=== PATIENT | female | born 1985 | race Caucasian/White ===

== ENCOUNTER 2023-04-26 12:02 | Emergency (ER) | payer BC, SELFPAY ==
[2023-04-26 12:04] VITALS: BP 152/101
--- NOTE | 2023-04-26 12:29 | ED.GENMED ---
History of Present Illness
General
Chief Complaint: Chest Pain
Source: patient
Exam Limitations: none
Time Seen by Provider: 04/26/23 12:15
Nursing documentation reviewed up to this point in time: agreed with
Travel History
Have you had any contact with someone who has COVID-19?: No
Do you have any symptoms of coronavirus? Fever > 100 degrees, chills, cough, shortness of breath, sore throat, loss of taste or smell, muscle aches, or headache?: No
History of Present Illness
History of Present Illness:
Patient to ED with complaint of chest pain. Symptoms started 1.5 weeks ago but seemed worse this AM. Describes pain as intermittent. Worse with deep breath. Diagnosed with breast CA in Sec. She is currently receiveing chemo. She has had 8
treatments, 16 to go. Last treatment was . She follows at [facility]. They are aware of her chest pain. Advised to come to ED if her symptoms worsened. She reprots increasing pain this AM. Denies fever/chills. Denies cough. No prior history
of same.
Past History
Past History
ED Past Medical History: Cancer (breast cancer), GERD and Other (Miscarriage)
ED Past Surgical History: Other (port, wisdom teeth)
Social History
Tobacco: Non-smoker
Alcohol: Occasional
Drug: None
Personal:
Living: with family
Review of Systems
Review of Systems
Allergies reviewed?: Yes
All Other Systems: ROS reviewed and negative except as documented in HPI and ROS
Constitutional: Reports no symptoms
EENT: Reports no symptoms
Respiratory: Reports no symptoms
Cardiac: Reports chest pain
ABD/GI: Reports no symptoms
: Reports no symptoms
Musculoskeletal: Reports no symptoms
Skin: Reports no symptoms
Neurological: Reports no symptoms
Psychiatric: Reports no symptoms
Phy Exam
General Physical Exam
General Presentation: well appearing and no apparent distress
General age: appears stated age
General Skin: warm and dry
General Habitus: normal
General Mental: alert
Cardiovascular Exam
Cardiovascular Exam: no edema and tachycardia
Pulmonary Exam
Pulmonary Exam: lungs clear and no respiratory distress
Gastrointestinal Exam
Gastrointestinal Exam: normal bowel sounds and non tender
Musculoskeletal Exam
Musculoskeletal Exam: full ROM and neuro vasc intact
Skin Exam
Skin Exam: normal color, warm/dry and no rash
Psychiatric Exam
Psychiatric Exam: normal mood/affect
Scores
Heart Score for Chest Pain Patients
STEMI patient?: Not applicable
Course
Orders/Labs/Results
Orders:
Orders
04/26/23 12:07
EKG [Electrocardiogram (*1)] Urgent
Reason for Study: Chest Pain
EKG- Treatment ONCE
04/26/23 12:29
Test Result ONCE
04/26/23 12:50
CR Chest - 2 Views Urgent
Comment:
Reason For Exam: chest pain, port Id
04/26/23 12:53
Complete Blood Count/With Diff Urgent
Comprehensive Metabolic Panel Urgent
D-Dimer Urgent
HCG, Serum Qualitative Screen Urgent
Troponin I Urgent
Abnormal Lab Results
04/26/23
12:53
WBC 2.6 L 10^3/uL
(4.8-10.8)
RBC 3.18 L 10^6/uL
(4.20-5.40)
Hgb 9.9 L g/dL
(12.0-16.0)
Hct 27.5 L %
(37.0-47.0)
MCH 31.1 H pg
(27.0-31.0)
RDW 14.7 H %
(11.5-14.5)
Absolute Neuts (auto) 1.2 L 10^3/uL
(1.4-6.5)
Potassium 3.3 L mmol/L
(3.5-5.1)
Creatinine 0.5 L mg/dL
(0.6-1.0)
Glucose 118 H mg/dl
(70-99)
04/26/23 12:53
04/26/23 12:53
Vital Signs
Initial and Last Documented VS:
Initial Vital Signs
Temp Pulse Resp BP Pulse Ox
98.1 F 126 18 152/101 100
04/26/23 12:04 04/26/23 12:04 04/26/23 12:04 04/26/23 12:04 04/26/23 12:04
Last Documented Vital Signs
Temp Pulse Resp BP Pulse Ox
98.1 F 91 15 118/97 100
04/26/23 12:04 04/26/23 13:15 04/26/23 13:15 04/26/23 13:00 04/26/23 13:15
*Radiology
Radiology exam reviewed: preliminary read by ED provider (TARI)
*Pulse Oximetry
Patient hypoxic: no
*EKG
Comparison EKG: no comparison EKG present
Rate: tachycardiac
Rhythm: sinus
*Critical Care Note
Total Time (30-74mins, 75-104mins- exclusive of procedures): Not Applicable
Update Note
Update Note:
Patient to ED for evaluation of chest pain x 1.5 weeks. Currently receiving chemo for breast CA. EKG sinus tachycardia. Tropnin and ddimer neg. Placed on Prevacid 2 days ago to treat suspected GERD. She will continue med as prescribed, follow
up with PCP in AM. Given instructions on s/s to return to ED and she is agreeable to plan.
ED Attending Note
-
Portions of this chart may have been created with voice recognition software.� Occasional wrong word or��sound alike� substitutions may have occurred due to the inherent limitations of voice recognition software.
Discharge Plan
Departure
Patient Disposition: Home (Routine Discharge)
Date of Disposition: 04/26/23
Time of Disposition: 13:50
Patient with high blood pressure during this ER visit?: No
Condition: Good
Covid-19: Not Applicable
Discharge Problem:
Chest pain
Instructions: Chest Pain That Is Not Caused by the Heart (DC), Acid Reflux and GERD in Adults (DC)
Prescriptions:
No Action
prednisone 50 MG tablet
50 mg PO DAILY Qty: 4 0RF
Referrals:
Bella Dawn MD [Family Provider] - Follow up in 2-3 days
Interventions
Interventions:
*Risk Screen - Suicide Last Done: 04/26/23 12:36
*General Assessment Last Done: 04/26/23 12:04
*Neglect/Abuse Screening Last Done: 04/26/23 12:36
ED- Fall Risk Assessment Last Done: 04/26/23 13:29
*ED COVID-19 Vaccine History Last Done: 04/26/23 12:04
*Nursing Disposition Last Done: 04/26/23 14:22
ED- Cardiac Assessment Last Done: 04/26/23 12:36
Discharge Date and Time
Discharge Date/Time: 04/26/23 14:29
[2023-04-26 12:35] VITALS: BMI 19.4
[2023-04-26 12:54] VITALS: BP 125/95
[2023-04-26 13:00] VITALS: BP 118/97
[2023-04-26 13:01] LABS: % Basophils 0.8 % (0-2); % Immature Granulocytes 0.4 % (0-0.5); % Lymphocytes 46.1 % (20.5-51.1); % Neutrophils 45.7 % (42.2-75.2); Absolute Lymphocytes 1.2 10^3/uL (1.2-3.4); Absolute Monocytes 0.2 10^3/uL (0.1-0.6); Absolute Neutrophils 1.2 10^3/uL (1.4-6.5); Hematocrit 27.5 % (37.0-47.0); Hemoglobin 9.9 g/dL (12.0-16.0); Mean Corpuscular Hgb 31.1 pg (27.0-31.0); Mean Corpuscular Volume 86.5 fL (81.0-99.0); Mean Platelet Volume 9.1 fL (7.4-10.4); Nucleated Red Blood Cells % 0 %; Platelet Count 227 10^3/uL (130-400); Red Blood Cell Count 3.18 10^6/uL (4.20-5.40); Red Cell Dist. Width 14.7 % (11.5-14.5); White Blood Cell Count 2.6 10^3/uL (4.8-10.8)
[2023-04-26 13:11] LABS: HCG, Serum Qualitative Screen Negative
[2023-04-26 13:16] LABS: ALT (SGPT) 25 U/L (0-35); AST (SGOT) 24 U/L (14-36); Albumin 4.1 g/dl (3.5-5.0); Alkaline Phosphatase 45 U/L (38-126); Blood Urea Nitrogen 10 mg/dl (7-17); Calcium 9.3 mg/dl (8.4-10.2); Carbon Dioxide 27 mmol/L (22-30); Chloride 103 mmol/L (98-107); D-Dimer 0.39 ug/mlFEU (0.00-0.50); Estimated Creatinine Clearance 97 ml/min; Glucose 118 mg/dl (70-99); Potassium 3.3 mmol/L (3.5-5.1); Sodium 137 mmol/L (135-145); Total Bilirubin 0.3 mg/dl (0.2-1.3); Total Protein 6.6 g/dl (6.3-8.2); eGFR > 60.00
[2023-04-26 13:26] LABS: Troponin I < 0.012 ng/ml
== END 2023-04-26 14:29 | disposition home or self-care (01) ==
LOC: EMR 12:02
PROVIDERS: Nurse Practitioner; EMERGENCY PHYSICIAN Emergency Medicine; FAMILY PHYSICIAN Family Medicine
DX: R07.9 Chest pain, unspecified (principal); Z85.3 Personal history of malignant neoplasm of breast
CPT/HCPCS: 99285; 71046; 80053; 84484; 84703; 85025; 85379; 93005

== ENCOUNTER 2023-12-14 14:00 | Outpatient (RCR) | payer BC, SELFPAY | END 2023-12-14 23:59 | disposition home or self-care (01) | LOC: RPT 14:00 | PROVIDERS: ATTENDING PHYSICIAN Radiology Radiation Oncology; FAMILY PHYSICIAN Family Medicine | DX: I97.2 Postmastectomy lymphedema syndrome (principal); C50.911 Malignant neoplasm of unspecified site of right female breast; L90.5 Scar conditions and fibrosis of skin; R53.0 Neoplastic (malignant) related fatigue; I89.8 Other specified noninfective disorders of lymphatic vessels and lymph nodes; M96.2 Postradiation kyphosis | CPT/HCPCS: 97140; 97163; 97530 ==

== ENCOUNTER 2024-01-12 11:03 | Outpatient (RCR) | payer BC, SELFPAY | END 2024-01-12 23:59 | disposition home or self-care (01) | LOC: RPT 11:03 | PROVIDERS: ATTENDING PHYSICIAN Radiology Radiation Oncology; FAMILY PHYSICIAN Family Medicine | DX: I97.2 Postmastectomy lymphedema syndrome (principal); C50.911 Malignant neoplasm of unspecified site of right female breast; L90.5 Scar conditions and fibrosis of skin; R53.0 Neoplastic (malignant) related fatigue; M96.2 Postradiation kyphosis; Z73.6 Limitation of activities due to disability | CPT/HCPCS: 97110; 97112; 97140; 97530 ==

== ENCOUNTER 2024-02-08 12:23 | Outpatient (RCR) | payer BC, SELFPAY | END 2024-02-08 23:59 | disposition home or self-care (01) | LOC: RPT 12:23 | PROVIDERS: ATTENDING PHYSICIAN Radiology Radiation Oncology; FAMILY PHYSICIAN Family Medicine | DX: I97.2 Postmastectomy lymphedema syndrome (principal); C50.911 Malignant neoplasm of unspecified site of right female breast; L90.5 Scar conditions and fibrosis of skin; R53.0 Neoplastic (malignant) related fatigue; M96.2 Postradiation kyphosis; Z73.6 Limitation of activities due to disability | CPT/HCPCS: 97110; 97112; 97140; 97530 ==

== ENCOUNTER 2024-03-14 10:46 | Outpatient (RCR) | payer BC, SELFPAY | END 2024-03-14 23:59 | disposition home or self-care (01) | LOC: RPT 10:46 | PROVIDERS: ATTENDING PHYSICIAN Radiology Radiation Oncology; FAMILY PHYSICIAN Family Medicine | DX: I97.2 Postmastectomy lymphedema syndrome (principal); C50.911 Malignant neoplasm of unspecified site of right female breast; L90.5 Scar conditions and fibrosis of skin; R53.0 Neoplastic (malignant) related fatigue; M96.2 Postradiation kyphosis; Z73.6 Limitation of activities due to disability | CPT/HCPCS: 97110; 97112; 97140; 97530 ==

== ENCOUNTER → 2024-03-15 07:42 | Outpatient (REF) | payer BC, SELFPAY | LOC: RCS 07:42 | PROVIDERS: FAMILY PHYSICIAN Family Medicine | DX: C50.111 Malignant neoplasm of central portion of right female breast (principal); Z17.1 Estrogen receptor negative status [ER-] | CPT/HCPCS: 93306; 93356 ==

== ENCOUNTER 2024-04-14 18:01 | Outpatient (RCR) | payer BC, SELFPAY | END 2024-04-14 23:59 | disposition home or self-care (01) | LOC: RPT 18:01 | PROVIDERS: ATTENDING PHYSICIAN Radiology Radiation Oncology; FAMILY PHYSICIAN Family Medicine | DX: I97.2 Postmastectomy lymphedema syndrome (principal); C50.911 Malignant neoplasm of unspecified site of right female breast; L90.5 Scar conditions and fibrosis of skin; R53.0 Neoplastic (malignant) related fatigue; M96.2 Postradiation kyphosis; Z73.6 Limitation of activities due to disability | CPT/HCPCS: 97110; 97112; 97530 ==

== ENCOUNTER 2024-04-27 10:00 | Outpatient (RCR) | payer BC, SELFPAY | END 2024-04-27 23:59 | disposition home or self-care (01) | LOC: RPT 10:00 | PROVIDERS: ATTENDING PHYSICIAN Radiology Radiation Oncology; FAMILY PHYSICIAN Family Medicine | DX: I97.2 Postmastectomy lymphedema syndrome (principal); C50.911 Malignant neoplasm of unspecified site of right female breast; L90.5 Scar conditions and fibrosis of skin; R53.0 Neoplastic (malignant) related fatigue; M96.2 Postradiation kyphosis; Z73.6 Limitation of activities due to disability | CPT/HCPCS: 97110; 97140; 97530 ==

== ENCOUNTER 2024-05-23 09:40 | Outpatient (RCR) | payer BC, SELFPAY | END 2024-05-23 23:59 | disposition home or self-care (01) | LOC: RPT 09:40 | PROVIDERS: ATTENDING PHYSICIAN Radiology Radiation Oncology; FAMILY PHYSICIAN Family Medicine | DX: I97.2 Postmastectomy lymphedema syndrome (principal); C50.911 Malignant neoplasm of unspecified site of right female breast; L90.5 Scar conditions and fibrosis of skin; R53.0 Neoplastic (malignant) related fatigue; M96.2 Postradiation kyphosis; Z73.6 Limitation of activities due to disability | CPT/HCPCS: 97110; 97530 ==

== ENCOUNTER 2024-06-21 13:55 | Outpatient (RCR) | payer BC, SELFPAY | END 2024-06-21 23:59 | disposition home or self-care (01) | LOC: RPT 13:55 | PROVIDERS: ATTENDING PHYSICIAN Radiology Radiation Oncology; FAMILY PHYSICIAN Family Medicine | DX: I97.2 Postmastectomy lymphedema syndrome (principal); C50.911 Malignant neoplasm of unspecified site of right female breast; L90.5 Scar conditions and fibrosis of skin; R53.0 Neoplastic (malignant) related fatigue; M96.2 Postradiation kyphosis; Z73.6 Limitation of activities due to disability | CPT/HCPCS: 97110; 97140; 97530 ==

== ENCOUNTER 2024-07-18 09:10 | Outpatient (RCR) | payer BC, SELFPAY | END 2024-07-18 13:05 | disposition home or self-care (01) | LOC: RPT 09:10 | PROVIDERS: ATTENDING PHYSICIAN Radiology Radiation Oncology; FAMILY PHYSICIAN Family Medicine | DX: I97.2 Postmastectomy lymphedema syndrome (principal); C50.911 Malignant neoplasm of unspecified site of right female breast; L90.5 Scar conditions and fibrosis of skin; R53.0 Neoplastic (malignant) related fatigue; M96.2 Postradiation kyphosis; I89.8 Other specified noninfective disorders of lymphatic vessels and lymph nodes; Z73.6 Limitation of activities due to disability | CPT/HCPCS: 97110; 97530 ==